=== PATIENT | male | born 1965 | race African-American/Black ===

== ENCOUNTER 2020-03-09 09:07 | Inpatient (IN) | payer OTHER ==
--- NOTE | 2020-03-09 12:15 | BHS.RME ---
Substance Use & Tx History - Substance Use History Alcohol Substance amount: 2 cases Frequency of use: Daily Substance route: Oral Date of Last Use: 03/08/20 - Last Treatment Date of last treatment: September 2019 at [facility] Where was last treatment: Detox Physical/Psych/Mental Status - Behavior General Behavior: Increased activity (restlessness, agitation) Eye Contact: Normal - Cooperativeness Cooperativeness: Cooperative - Thinking Thought Processes: Goal Directed Thought content: Future oriented - Physical Health Problems Is patient presently having any pain?: No Does patient presently have any injuries (include location): No Does patient currently have a fever: No CIWA Nausea/Vomitin Muscle Tremors: None Anxiety: 2 Agitation: 1-Slight > Activity Paroxysmal Sweats: 2 Orientation: 0-Oriented Tacttile Disturbances: 2-Mild Itch/Numbness/Burn Auditory Disturbances: 1-Very Mild Visual Disturbances: 1-Very Mild Sensitivity Headache: 1-Very Mild CIWA-Ar Total Score: 12
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
[2020-03-09] MEDS ORDERED: chlordiazePOXIDE HCL 10 MG CAPSULE PO PRN (12:21)
[2020-03-09] MEDS ORDERED: MENTHOL/PHENOL 1 EACH UD MM PRN (12:21)
[2020-03-09] MEDS ORDERED: IBUPROFEN 400 MG TABLET (FP) PO PRN (12:21)
[2020-03-09] MEDS ORDERED: ONDANSETRON *ODT* 4 MG TABLET SL ONE (12:21)
[2020-03-09] MEDS ORDERED: NICOTINE POLACRILEX 2 MG GUM BUC PRN (12:21)
[2020-03-09] MEDS ORDERED: METHOCARBAMOL 500 MG TABLET PO PRN (12:21)
[2020-03-09] MEDS ORDERED: MAGNESIUM HYDROX 2400MG/30ML ORAL SUSPENSION 30 ML CUP PO PRN (12:21)
[2020-03-09] MEDS ORDERED: BISMUTH SUBSALICYLATE 524 MG/30 ML UD PO PRN (12:21)
[2020-03-09] MEDS ORDERED: MAG HYDROX/AL HYDROX/SIMETH 30 ML UNIT-DOSE CUP PO PRN (12:21)
[2020-03-09] MEDS ORDERED: ACETAMINOPHEN 325 MG TABLET (FP) PO PRN ×2 (12:21)
[2020-03-09] MEDS ORDERED: MAGNESIUM CITRATE 300 ML BOTTLE PO PRN (12:21)
[2020-03-09 12:38] VITALS: BMI 21.5
[2020-03-09] MEDS: hydrOXYzine PAMOATE 25 MG CAPSULE (FP) PO SCH ×3 (13:45→21:27)
[2020-03-09] MEDS: chlordiazePOXIDE HCL 25 MG CAPSULE PO SCH ×2 (13:45→21:27)
[2020-03-09] MEDS: MELATONIN 5 MG TABLETS PO SCH (21:27)
[2020-03-09] MEDS: THIAMINE HCL 100 MG TABLET (FP) PO SCH (21:30)
[2020-03-10] MEDS: hydrOXYzine PAMOATE 25 MG CAPSULE (FP) PO SCH ×5 (05:41→22:10)
[2020-03-10] MEDS: chlordiazePOXIDE HCL 25 MG CAPSULE PO SCH ×3 (05:41→22:11)
[2020-03-10] MEDS: NICOTINE 7 MG/24 HOURS TOPICAL PATCH TD SCH (09:37)
[2020-03-10] MEDS: PRENATAL VITAMINS W/ FOLIC ACID TABLET (FP) PO SCH (09:37)
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
--- NOTE | 2020-03-10 10:57 | PN ---
S CIWA - CIWA Score Nausea/Vomitin-Mild Nausea/No Vomiting Muscle Tremors: 2 Anxiety: 2 Agitation: 1-Slight > Activity Paroxysmal Sweats: 2 Orientation: 0-Oriented Tacttile Disturbances: 1-Very Mild Itch/Numbness Auditory Disturbances: 0-None Visual Disturbances: 2-Mild Sensitivity Headache: 0-None Present CIWA-Ar Total Score: 11 BHS Progress Note (SOAP) Subjective: 54 years old male admitted on 03/09/20 for alcohol withdrawal sx management treating with librium detox regiment feeling tired resting in bed limited conversation with staff bmi 21.5 initiates ensure 120 ml po tid Objective: 03/10/20 10:58 Vital Signs - 24 hr 03/09/20 03/09/20 03/09/20 12:31 13:13 16:52 Temperature 97.9 F 97.1 F L 97.3 F L Pulse Rate 107 H 83 96 H Respiratory 18 18 16 Rate Blood Pressure 107/67 127/82 106/70 O2 Sat by Pulse 97 Oximetry (%) 03/09/20 03/10/20 03/10/20 20:35 00:30 03:30 Temperature 98.0 F Pulse Rate 100 H Respiratory 16 18 18 Rate Blood Pressure 110/69 O2 Sat by Pulse 99 Oximetry (%) 03/10/20 03/10/20 06:23 08:36 Temperature 97.7 F 97.1 F L Pulse Rate 73 96 H Respiratory 16 18 Rate Blood Pressure 99/59 L 102/61 O2 Sat by Pulse 98 Oximetry (%) 03/10/20 10:58 lab pending Assessment: 03/10/20 10:59 alcohol withdrawal Plan: ativan regiment
[2020-03-10 11:41] LABS: HEMATOCRIT 39.2 % (35.4-49); HEMOGLOBIN 12.9 GM/dL (11.7-16.9); MCH 30.5 pg (25.7-33.7); MEAN CELL VOLUME 92.4 fl (80-96); MEAN PLT VOLUME 11.7 fl (7.5-11.1); PLATELET COUNT 70 K/MM3 (134-434); RBC 4.24 M/mm3 (4.00-5.60); RDW 15.2 % (11.9-15.9); WHITE BLOOD COUNT 5.2 K/mm3 (4.0-10.0)
[2020-03-10 11:58] LABS: ALBUMIN 3.8 g/dl (3.4-5.0); BILIRUBIN,TOTAL 0.7 mg/dL (0.2-1); BLOOD UREA NITROGEN 20.1 mg/dL (7-18); CALCIUM 8.9 mg/dL (8.5-10.1); CREATININE 1.3 mg/dL (0.55-1.3); POTASSIUM 3.4 mmol/L (3.5-5.1); TOT PROT 6.9 g/dl (6.4-8.2)
[2020-03-10] MEDS ORDERED: POTASSIUM CHLORIDE ORAL LIQUID 20 MEQ/15 ML PO ONE (15:36)
[2020-03-10] MEDS ORDERED: SUVOREXANT 10 MG TABLET PO PRN (22:00)
[2020-03-10] MEDS: THIAMINE HCL 100 MG TABLET (FP) PO SCH (22:10)
[2020-03-10] MEDS: MELATONIN 5 MG TABLETS PO SCH (22:11)
[2020-03-10] MEDS: SUVOREXANT 10 MG TABLET PO PRN (22:14)
[2020-03-11] MEDS: chlordiazePOXIDE 5 MG CAPSULE PO SCH ×3 (06:40→22:00)
[2020-03-11] MEDS: hydrOXYzine PAMOATE 25 MG CAPSULE (FP) PO SCH ×5 (06:40→22:00)
[2020-03-11] MEDS: PRENATAL VITAMINS W/ FOLIC ACID TABLET (FP) PO SCH (10:15)
[2020-03-11] MEDS: NICOTINE 7 MG/24 HOURS TOPICAL PATCH TD SCH (10:16)
--- NOTE | 2020-03-11 10:31 | PN ---
S CIWA - CIWA Score Nausea/Vomitin-Mild Nausea/No Vomiting Muscle Tremors: 2 Anxiety: 3 Agitation: 2 Paroxysmal Sweats: No Perspiration Orientation: 0-Oriented Tacttile Disturbances: 0-None Auditory Disturbances: 0-None Visual Disturbances: 0-None Headache: 0-None Present CIWA-Ar Total Score: 8 BHS Progress Note (SOAP) Subjective: 54 years old male admitted on 03/09/20 for alcohol withdrawal sx management treating with librium detox regiment mr reno requests hiv medication that he takes hiv medication everyday and the prescription ran out last dose unknown name of infectious disease provider "not remember" name of the hiv medication unknown states that infectious disease provider assessing cd4 and virus load every 4 months designer/writer called [phone] unable to carry conversation with the pharmacist at this time encourage mr reno to contact his infectious disease provider sent hiv medication to [facility] for pick up and delivery driver as continuity of hiv care Objective: 03/11/20 10:35 Vital Signs - 24 hr 03/10/20 03/10/20 03/10/20 12:42 16:56 20:32 Temperature 96.7 F L 97.7 F 97.3 F L Pulse Rate 105 H 105 H 91 H Respiratory 18 16 16 Rate Blood Pressure 104/64 106/70 110/74 O2 Sat by Pulse 97 100 Oximetry (%) 03/11/20 03/11/20 03/11/20 00:29 03:28 05:52 Temperature 98.0 F Pulse Rate 82 Respiratory 18 18 18 Rate Blood Pressure 110/58 L O2 Sat by Pulse 98 Oximetry (%) 03/11/20 08:40 Temperature 97.9 F Pulse Rate 95 H Respiratory 18 Rate Blood Pressure 98/60 O2 Sat by Pulse Oximetry (%) Laboratory Tests 03/10/20 03/10/20 03/10/20 07:30 07:30 07:30 WBC 5.2 RBC 4.24 Hgb 12.9 Hct 39.2 MCV 92.4 MCH 30.5 MCHC 33.0 RDW 15.2 Plt Count 70 L MPV 11.7 H Sodium 144 Potassium 3.4 L Chloride 110 H Carbon Dioxide 24 Anion Gap 10 BUN 20.1 H Creatinine 1.3 Est GFR (CKD-EPI)AfAm 72.20 Est GFR (CKD-EPI)NonAf 62.29 Random Glucose 102 Calcium 8.9 Total Bilirubin 0.7 AST 30 ALT 33 Alkaline Phosphatase 63 Total Protein 6.9 Albumin 3.8 Syphilis Serology Reactive A* RPR Titer 03/10/20 07:30 WBC RBC Hgb Hct MCV MCH MCHC RDW Plt Count MPV Sodium Potassium Chloride Carbon Dioxide Anion Gap BUN Creatinine Est GFR (CKD-EPI)AfAm Est GFR (CKD-EPI)NonAf Random Glucose Calcium Total Bilirubin AST ALT Alkaline Phosphatase Total Protein Albumin Syphilis Serology RPR Titer Reactive 1:1 H low K+ treated with K+ 40mEq po x 1 history of syphilis treated 03/11/20 10:37 Assessment: 03/11/20 10:37 alcohol withdrawal Plan: librium regiment
[2020-03-11] MEDS: THIAMINE HCL 100 MG TABLET (FP) PO SCH (22:00)
[2020-03-11] MEDS: SUVOREXANT 10 MG TABLET PO PRN (22:01)
[2020-03-11] MEDS: MELATONIN 5 MG TABLETS PO SCH (22:24)
[2020-03-12] MEDS ORDERED: chlordiazePOXIDE HCL 10 MG CAPSULE PO PRN
[2020-03-12] MEDS: hydrOXYzine PAMOATE 25 MG CAPSULE (FP) PO SCH ×5 (05:30→21:26)
[2020-03-12] MEDS: chlordiazePOXIDE HCL 10 MG CAPSULE PO SCH ×3 (05:30→21:25)
--- NOTE | 2020-03-12 09:54 | PN ---
S CIWA - CIWA Score Nausea/Vomitin-Mild Nausea/No Vomiting Muscle Tremors: 1-None Visible, but [place] Anxiety: 1-Mildly Anxious Agitation: 1-Slight > Activity Paroxysmal Sweats: No Perspiration Orientation: 0-Oriented Tacttile Disturbances: 1-Very Mild Itch/Numbness Auditory Disturbances: 0-None Visual Disturbances: 1-Very Mild Sensitivity Headache: 0-None Present CIWA-Ar Total Score: 6 BHS Progress Note (SOAP) Subjective: 54 years old male admitted on 03/09/20 for alcohol withdrawal sx management treating with librium detox regiment feeling better today ate breakfast in room showered discussing aftercare with staff Objective: 03/12/20 09:55 Vital Signs - 24 hr 03/11/20 03/11/20 03/11/20 12:46 16:39 20:38 Temperature 97.5 F L 98 F 98.2 F Pulse Rate 93 H 101 H 96 H Respiratory 18 18 18 Rate Blood Pressure 105/69 102/67 115/65 O2 Sat by Pulse 100 100 Oximetry (%) 03/12/20 03/12/20 03/12/20 00:23 03:31 06:06 Temperature 97.5 F L Pulse Rate 78 Respiratory 18 18 18 Rate Blood Pressure 99/58 L O2 Sat by Pulse 99 Oximetry (%) 03/12/20 08:32 Temperature 98.1 F Pulse Rate 82 Respiratory 18 Rate Blood Pressure 128/78 O2 Sat by Pulse Oximetry (%) Laboratory Tests 03/10/20 03/10/20 03/10/20 07:30 07:30 07:30 WBC 5.2 RBC 4.24 Hgb 12.9 Hct 39.2 MCV 92.4 MCH 30.5 MCHC 33.0 RDW 15.2 Plt Count 70 L MPV 11.7 H Sodium 144 Potassium 3.4 L Chloride 110 H Carbon Dioxide 24 Anion Gap 10 BUN 20.1 H Creatinine 1.3 Est GFR (CKD-EPI)AfAm 72.20 Est GFR (CKD-EPI)NonAf 62.29 Random Glucose 102 Calcium 8.9 Total Bilirubin 0.7 AST 30 ALT 33 Alkaline Phosphatase 63 Total Protein 6.9 Albumin 3.8 Syphilis Serology Reactive A* RPR Titer 03/10/20 07:30 WBC RBC Hgb Hct MCV MCH MCHC RDW Plt Count MPV Sodium Potassium Chloride Carbon Dioxide Anion Gap BUN Creatinine Est GFR (CKD-EPI)AfAm Est GFR (CKD-EPI)NonAf Random Glucose Calcium Total Bilirubin AST ALT Alkaline Phosphatase Total Protein Albumin Syphilis Serology RPR Titer Reactive 1:1 H 03/12/20 09:56 low K+ treated with K+ 40mEq x 1 history of syphilis treated 03/12/20 09:57 Assessment: 03/12/20 09:58 alcohol withdrawal Plan: librium regiment
[2020-03-12] MEDS: PRENATAL VITAMINS W/ FOLIC ACID TABLET (FP) PO SCH (10:03)
[2020-03-12] MEDS: NICOTINE 7 MG/24 HOURS TOPICAL PATCH TD SCH (10:03)
--- NOTE | 2020-03-12 10:54 | PN ---
DOROTHY Progress Note Note: Psychiatry Attending's note : Patient came to office. Issue : wants belsomra at 9 pm. Instead of 10 pm as currently ordered. Chart reviewed. Dr Telles's note (03/09/20) : read. Medication confirmed. Side effects/benefits revisited. Renewed with patient's informed consent : belsomra 10 mg po hs prn @ 21:00.
[2020-03-12] MEDS ORDERED: SUVOREXANT 10 MG TABLET PO PRN (21:00)
[2020-03-12] MEDS: THIAMINE HCL 100 MG TABLET (FP) PO SCH (21:26)
[2020-03-12] MEDS: MELATONIN 5 MG TABLETS PO SCH ×2 (22:36→22:42)
[2020-03-13] MEDS ORDERED: chlordiazePOXIDE HCL 10 MG CAPSULE PO ONE (05:00)
[2020-03-13] MEDS: hydrOXYzine PAMOATE 25 MG CAPSULE (FP) PO SCH ×4 (05:30→18:20)
[2020-03-13] MEDS: PRENATAL VITAMINS W/ FOLIC ACID TABLET (FP) PO SCH (09:59)
[2020-03-13] MEDS ORDERED: LOPERAMIDE HCL 2 MG CAPSULE PO ONE (10:01)
[2020-03-13] MEDS: NICOTINE 7 MG/24 HOURS TOPICAL PATCH TD SCH (10:03)
--- NOTE | 2020-03-13 10:03 | DS ---
[facility] Detox Discharge Summary Admission Date: 03/09/20 Discharge Date: 03/13/20 - History Present History: Alcohol Dependence Additional Comments: 54 years old male admitted on 03/09/20 for alcohol withdrawal sx management treating with librium detox regiment ate breakfast no trouble chewing swallowing seen by psychiatrist luisa initiated for insomnia mr reno has completed the librium regiment and is tolerated well loose stool x 1 after breakfast imodium 4 mg po x 1 encourage hand washings and hygiene and oral fluid intake as well as over the counter antidiarrhea medication received K+ 40mEq x 1 for 3.4K+ serum mr reno is alert oriented x 3 speech clearly coherently Vital Signs - 24 hr 03/12/20 03/12/20 03/12/20 12:52 16:45 20:39 Temperature 97.6 F 97.7 F 98.4 F Pulse Rate 100 H 98 H 93 H Respiratory 20 18 18 Rate Blood Pressure 109/66 103/65 99/67 O2 Sat by Pulse 100 100 Oximetry (%) 03/13/20 03/13/20 03/13/20 03:30 06:14 08:35 Temperature 97.6 F 97.8 F Pulse Rate 86 72 Respiratory 18 18 18 Rate Blood Pressure 114/75 106/64 O2 Sat by Pulse 99 Oximetry (%) cardiac s1s2 regular rate rhythm respiratory clear lung sounds bilaterally on auscultation skin warm and dry oral mucosa moist Pertinent Past History: time for discharge 35 minutes - Physical Exam Results Vital Signs: Vital Signs Temperature 97.8 F 03/13/20 08:35 Pulse Rate 72 03/13/20 08:35 Respiratory Rate 18 03/13/20 08:35 Blood Pressure 106/64 03/13/20 08:35 O2 Sat by Pulse Oximetry (%) 99 03/13/20 06:14 Pertinent Admission Physical Exam Findings: alcohol withdrawal Laboratory Tests 03/10/20 03/10/20 03/10/20 07:30 07:30 07:30 WBC 5.2 RBC 4.24 Hgb 12.9 Hct 39.2 MCV 92.4 MCH 30.5 MCHC 33.0 RDW 15.2 Plt Count 70 L MPV 11.7 H Sodium 144 Potassium 3.4 L Chloride 110 H Carbon Dioxide 24 Anion Gap 10 BUN 20.1 H Creatinine 1.3 Est GFR (CKD-EPI)AfAm 72.20 Est GFR (CKD-EPI)NonAf 62.29 Random Glucose 102 Calcium 8.9 Total Bilirubin 0.7 AST 30 ALT 33 Alkaline Phosphatase 63 Total Protein 6.9 Albumin 3.8 Syphilis Serology Reactive A* RPR Titer 03/10/20 07:30 WBC RBC Hgb Hct MCV MCH MCHC RDW Plt Count MPV Sodium Potassium Chloride Carbon Dioxide Anion Gap BUN Creatinine Est GFR (CKD-EPI)AfAm Est GFR (CKD-EPI)NonAf Random Glucose Calcium Total Bilirubin AST ALT Alkaline Phosphatase Total Protein Albumin Syphilis Serology RPR Titer Reactive 1:1 H reactive syphilis serology treated by history rpr 1:1 - Treatment Hospital Course: Detox Protocol Followed, Detoxed Safely, Responded well, Discharged Condition Good, Rehab Referral Accepted Patient has Accepted a Rehab Referral [facility] - Medication Discharge Medications: Ambulatory Orders Abacavir/Dolutegravir/Lamivudi [Triumeq 600-50-300 mg Tablet] 1 each PO DAILY 12/20/14 Mirtazapine [Remeron -] 45 mg PO HS 03/09/20 - Diagnosis (1) Alcohol dependence, uncomplicated Current Visit: Yes Status: Acute (2) Substance induced mood disorder Current Visit: Yes Status: Suspected (3) Syphilis contact, treated Current Visit: Yes Status: Chronic (4) HIV (human immunodeficiency virus infection) Current Visit: Yes Status: Chronic Qualifiers: HIV symptom status: asymptomatic Qualified Code(s): Z21 - Asymptomatic human immunodeficiency virus [HIV] infection status (5) Nicotine dependence Current Visit: Yes Status: Acute Qualifiers: Nicotine product type: cigarettes Substance use status: in withdrawal Crescencio lified Code(s): F17.213 - Nicotine dependence, cigarettes, with withdrawal - AMA Did Patient Leave Against Medical Advice: No CIWA Score - CIWA Score Nausea/Vomitin-Mild Nausea/No Vomiting Muscle Tremors: 1-None Visible, but [place] Anxiety: 1-Mildly Anxious Agitation: 0-Normal Activity Paroxysmal Sweats: No Perspiration Orientation: 0-Oriented Tacttile Disturbances: 0-None Auditory Disturbances: 0-None Visual Disturbances: 0-None Headache: 0-None Present CIWA-Ar Total Score: 3
--- NOTE | 2020-03-13 11:32 | PN ---
DOROTHY Progress Note Note: Psychiatry Attending's note : Follow-up visit to discuss medications. Patient came spontaneously to office. Met with MD. Endorses partial response to suvorexant. Mr Wei requests addition of quetiapine to regimen. Side effects/benefits are discussed with the patient. Informed consent (verbal) granted to MD. See orders. Seroquel 100 mg po hs @ 9 pm (at patient's specific request).
[2020-03-13 17:40] VITALS: BP 98/66; PULSE 95; TEMP 96.8
[2020-03-13] MEDS ORDERED: QUEtiapine FUMARATE 100 MG TABLET (FP) PO SCH (21:00)
== END 2020-03-13 18:08 | disposition other institution (70) | DRG 774 ==
LOC: YASAS 09:07 → Y3N 12:18
PROVIDERS: ADMIT Allergy & Immunology; ATTEND Allergy & Immunology
PROC: HZ2ZZZZ Detoxification Services for Substance Abuse Treatment (ICD-10-PCS; principal; 2020-03-09)
DX: F10.230 Alcohol dependence with withdrawal, uncomplicated (principal); F14.20 Cocaine dependence, uncomplicated; F17.210 Nicotine dependence, cigarettes, uncomplicated; F19.282 Other psychoactive substance dependence with psychoactive substance-induced sleep disorder; F19.24 Other psychoactive substance dependence with psychoactive substance-induced mood disorder; Z21 Asymptomatic human immunodeficiency virus [HIV] infection status; E73.9 Lactose intolerance, unspecified; M17.0 Bilateral primary osteoarthritis of knee; Z20.2 Contact with and (suspected) exposure to infections with a predominantly sexual mode of transmission; Z91.5 Personal history of self-harm; Z88.0 Allergy status to penicillin
CPT/HCPCS: 36415; 80053; 85027; 86593; 86780; U0003

== ENCOUNTER 2020-03-13 17:52 | Inpatient (IN) | payer OTHER ==
--- NOTE | 2020-03-13 10:54 | HP ---
DOROTHY OZUNA Rehab Assess/Revision - Admission History Admitted to Rehab from: [facility] Date of Admission to Rehab: 03/13/20 - Findings Detox History & Physical reviewed: Yes Concur with findings: Yes Comments/Additional Findings: transferred from detox to rehab admission as per protocol Inpatient Rehab Admission - Rehab Decision to Admit Inpatient rehab admission?: Yes - Initial Determination Are CD services needed?: Yes Free of communicable disease: Yes Not in need of hospitalization: Yes - Rehab Admission Criteria Previous failed treatment: Yes Poor recovery environment: Yes Comorbidities: Yes Lacks judgement: Yes Patient is meeting Inpatient Rehab admission criteria:: Yes
[~2020-03-13 17:52] MED LIST: ACETAMINOPHEN 325 MG TABLET (FP) PO PRN; IBUPROFEN 400 MG TABLET (FP) PO PRN; LOPERAMIDE HCL 2 MG CAPSULE PO PRN; MAG HYDROX/AL HYDROX/SIMETH 30 ML UNIT-DOSE CUP PO PRN; MAGNESIUM CITRATE 300 ML BOTTLE PO PRN; MAGNESIUM HYDROX 2400MG/30ML ORAL SUSPENSION 30 ML CUP PO PRN; P-EPHED 60MG/TRIPROLIDI 2.5MG TABLET PO PRN; guaiFENesin 200 MG/10 ML 10 ML UNIT-DOSE CUPS PO PRN; hydrOXYzine PAMOATE 25 MG CAPSULE (FP) PO PRN
[2020-03-13] MEDS: THIAMINE HCL 100 MG TABLET (FP) PO SCH (21:21)
[2020-03-13] MEDS: MELATONIN 5 MG TABLETS PO SCH (21:22)
[2020-03-13] MEDS ORDERED: SUVOREXANT 10 MG TABLET PO ONE (22:00)
[2020-03-14] MEDS: NICOTINE 7 MG/24 HOURS TOPICAL PATCH TD SCH (09:43)
[2020-03-14] MEDS: PRENATAL VITAMINS W/ FOLIC ACID TABLET (FP) PO SCH (09:43)
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
--- NOTE | 2020-03-14 14:08 | PN ---
[facility] Progress Note Note: Patient is HIV positive and is on Triumeq. Last dose on 03/09, right before admission to [facility].
[2020-03-14] MEDS: THIAMINE HCL 100 MG TABLET (FP) PO SCH (21:06)
[2020-03-14] MEDS: MELATONIN 5 MG TABLETS PO SCH (21:07)
[2020-03-14] MEDS: QUEtiapine FUMARATE 100 MG TABLET (FP) PO SCH (21:07)
[2020-03-14] MEDS: SUVOREXANT 10 MG TABLET PO PRN (21:09)
[2020-03-15] MEDS: ABACAVIR/DOLUTEGRAVIR/LAMIVUDI (TRIUMEQ) TABLET -NF PO SCH (07:06)
[2020-03-15] MEDS: PRENATAL VITAMINS W/ FOLIC ACID TABLET (FP) PO SCH (09:31)
[2020-03-15] MEDS: NICOTINE 7 MG/24 HOURS TOPICAL PATCH TD SCH (09:32)
[2020-03-15] MEDS: QUEtiapine FUMARATE 100 MG TABLET (FP) PO SCH (19:25)
[2020-03-15] MEDS: MELATONIN 5 MG TABLETS PO SCH (21:33)
[2020-03-15] MEDS: THIAMINE HCL 100 MG TABLET (FP) PO SCH (21:33)
[2020-03-15] MEDS: SUVOREXANT 10 MG TABLET PO PRN (21:34)
[2020-03-16] MEDS: ABACAVIR/DOLUTEGRAVIR/LAMIVUDI (TRIUMEQ) TABLET -NF PO SCH (07:27)
[2020-03-16] MEDS: PRENATAL VITAMINS W/ FOLIC ACID TABLET (FP) PO SCH (10:02)
[2020-03-16] MEDS: NICOTINE 7 MG/24 HOURS TOPICAL PATCH TD SCH (10:02)
[2020-03-16] MEDS: QUEtiapine FUMARATE 100 MG TABLET (FP) PO SCH (19:46)
[2020-03-16] MEDS: THIAMINE HCL 100 MG TABLET (FP) PO SCH (21:25)
[2020-03-16] MEDS: MELATONIN 5 MG TABLETS PO SCH (21:25)
[2020-03-16] MEDS: SUVOREXANT 10 MG TABLET PO PRN (21:26)
[2020-03-17] MEDS: ABACAVIR/DOLUTEGRAVIR/LAMIVUDI (TRIUMEQ) TABLET -NF PO SCH (07:01)
[2020-03-17] MEDS: PRENATAL VITAMINS W/ FOLIC ACID TABLET (FP) PO SCH (10:00)
[2020-03-17] MEDS: NICOTINE 7 MG/24 HOURS TOPICAL PATCH TD SCH (10:00)
[2020-03-17] MEDS: QUEtiapine FUMARATE 100 MG TABLET (FP) PO SCH (19:44)
[2020-03-17] MEDS: SUVOREXANT 10 MG TABLET PO PRN (21:08)
[2020-03-17] MEDS: MELATONIN 5 MG TABLETS PO SCH (21:08)
[2020-03-17] MEDS: THIAMINE HCL 100 MG TABLET (FP) PO SCH (21:08)
[2020-03-18] MEDS ORDERED: PT OWN MED DRAWER 7, Y5N ONE ×2 (05:18→07:32)
[2020-03-18] MEDS: ABACAVIR/DOLUTEGRAVIR/LAMIVUDI (TRIUMEQ) TABLET -NF PO SCH (07:15)
[2020-03-18] MEDS: PRENATAL VITAMINS W/ FOLIC ACID TABLET (FP) PO SCH (09:55)
[2020-03-18] MEDS: NICOTINE POLACRILEX 2 MG GUM BC PRN (09:56)
[2020-03-18] MEDS: NICOTINE 7 MG/24 HOURS TOPICAL PATCH TD SCH (09:57)
[2020-03-18] MEDS: QUEtiapine FUMARATE 100 MG TABLET (FP) PO SCH (21:00)
[2020-03-18] MEDS: THIAMINE HCL 100 MG TABLET (FP) PO SCH (21:00)
[2020-03-18] MEDS: MELATONIN 5 MG TABLETS PO SCH (21:00)
[2020-03-19] MEDS ORDERED: PT OWN MED DRAWER 7, Y5N ONE (03:16)
[2020-03-19] MEDS: ABACAVIR/DOLUTEGRAVIR/LAMIVUDI (TRIUMEQ) TABLET -NF PO SCH (07:27)
[2020-03-19] MEDS: NICOTINE 7 MG/24 HOURS TOPICAL PATCH TD SCH (10:00)
[2020-03-19] MEDS: PRENATAL VITAMINS W/ FOLIC ACID TABLET (FP) PO SCH (10:00)
[2020-03-19] MEDS: NICOTINE POLACRILEX 2 MG GUM BC PRN (10:01)
[2020-03-19] MEDS: QUEtiapine FUMARATE 100 MG TABLET (FP) PO SCH (19:57)
[2020-03-19] MEDS: MELATONIN 5 MG TABLETS PO SCH (21:13)
[2020-03-19] MEDS: THIAMINE HCL 100 MG TABLET (FP) PO SCH (21:14)
[2020-03-20] MEDS ORDERED: PT OWN MED DRAWER 7, Y5N ONE (03:13)
[2020-03-20] MEDS: ABACAVIR/DOLUTEGRAVIR/LAMIVUDI (TRIUMEQ) TABLET -NF PO SCH (07:16)
[2020-03-20] MEDS: PRENATAL VITAMINS W/ FOLIC ACID TABLET (FP) PO SCH (09:26)
[2020-03-20] MEDS: NICOTINE 7 MG/24 HOURS TOPICAL PATCH TD SCH (09:27)
[2020-03-20] MEDS: QUEtiapine FUMARATE 100 MG TABLET (FP) PO SCH (19:48)
[2020-03-20] MEDS: MELATONIN 5 MG TABLETS PO SCH (21:13)
[2020-03-20] MEDS: THIAMINE HCL 100 MG TABLET (FP) PO SCH (21:13)
[2020-03-21] MEDS ORDERED: PT OWN MED DRAWER 7, Y5N ONE (03:05)
[2020-03-21] MEDS: ABACAVIR/DOLUTEGRAVIR/LAMIVUDI (TRIUMEQ) TABLET -NF PO SCH (07:31)
[2020-03-21] MEDS: PRENATAL VITAMINS W/ FOLIC ACID TABLET (FP) PO SCH (09:37)
[2020-03-21] MEDS: NICOTINE 7 MG/24 HOURS TOPICAL PATCH TD SCH (09:37)
[2020-03-21] MEDS: NICOTINE POLACRILEX 2 MG GUM BC PRN (09:38)
--- NOTE | 2020-03-21 10:26 | PN ---
[facility] Progress Note Note: Psychiatric nurse practitioner note: Patient requesting to resume Belsomra 10mg HS PRN. Will re order Belsomra 10mg PRN X3 days for insomnia.
--- NOTE | 2020-03-21 10:31 | PN ---
[facility] Progress Note Note: patient is reporting diarrhea after every meal. He is lactose intolerant and drinking Ensure with his meals. He states he has to "because he is HIV positive." Explained to patient that he will continue to have diarrhea as long as he drinks Ensure. Offered [employer].
[2020-03-21] MEDS: AMINO ACIDS/PROTEIN HYDROLYS 30 ML LIQUID.PKT PO SCH (16:59)
[2020-03-21] MEDS: SUVOREXANT 10 MG TABLET PO PRN (21:19)
[2020-03-21] MEDS: THIAMINE HCL 100 MG TABLET (FP) PO SCH (21:19)
[2020-03-21] MEDS: QUEtiapine FUMARATE 100 MG TABLET (FP) PO SCH (21:19)
[2020-03-21] MEDS: MELATONIN 5 MG TABLETS PO SCH (21:19)
[2020-03-22] MEDS ORDERED: PT OWN MED DRAWER 7, Y5N ONE ×2 (05:25→07:06)
[2020-03-22] MEDS: ABACAVIR/DOLUTEGRAVIR/LAMIVUDI (TRIUMEQ) TABLET -NF PO SCH (07:04)
[2020-03-22] MEDS: AMINO ACIDS/PROTEIN HYDROLYS 30 ML LIQUID.PKT PO SCH ×2 (07:05→17:40)
[2020-03-22] MEDS: NICOTINE 7 MG/24 HOURS TOPICAL PATCH TD SCH (09:53)
[2020-03-22] MEDS: PRENATAL VITAMINS W/ FOLIC ACID TABLET (FP) PO SCH (09:53)
[2020-03-22] MEDS: QUEtiapine FUMARATE 100 MG TABLET (FP) PO SCH (20:42)
[2020-03-22] MEDS: MELATONIN 5 MG TABLETS PO SCH (21:11)
[2020-03-22] MEDS: THIAMINE HCL 100 MG TABLET (FP) PO SCH (21:11)
[2020-03-22] MEDS: SUVOREXANT 10 MG TABLET PO PRN (21:11)
[2020-03-23] MEDS: ABACAVIR/DOLUTEGRAVIR/LAMIVUDI (TRIUMEQ) TABLET -NF PO SCH (07:18)
[2020-03-23] MEDS: AMINO ACIDS/PROTEIN HYDROLYS 30 ML LIQUID.PKT PO SCH ×2 (07:18→17:21)
[2020-03-23] MEDS ORDERED: PT OWN MED DRAWER 7, Y5N ONE ×2 (07:19→08:22)
[2020-03-23] MEDS: PRENATAL VITAMINS W/ FOLIC ACID TABLET (FP) PO SCH (09:40)
[2020-03-23] MEDS: NICOTINE POLACRILEX 2 MG GUM BC PRN (09:41)
[2020-03-23] MEDS: NICOTINE 7 MG/24 HOURS TOPICAL PATCH TD SCH (09:41)
[2020-03-23] MEDS: THIAMINE HCL 100 MG TABLET (FP) PO SCH (21:25)
[2020-03-23] MEDS: QUEtiapine FUMARATE 100 MG TABLET (FP) PO SCH (21:25)
[2020-03-23] MEDS: MELATONIN 5 MG TABLETS PO SCH (21:26)
[2020-03-23] MEDS: SUVOREXANT 10 MG TABLET PO PRN (21:26)
[2020-03-24] MEDS: ABACAVIR/DOLUTEGRAVIR/LAMIVUDI (TRIUMEQ) TABLET -NF PO SCH (07:15)
[2020-03-24] MEDS: AMINO ACIDS/PROTEIN HYDROLYS 30 ML LIQUID.PKT PO SCH ×2 (07:16→17:06)
[2020-03-24] MEDS ORDERED: PT OWN MED DRAWER 7, Y5N ONE (08:53)
[2020-03-24] MEDS: PRENATAL VITAMINS W/ FOLIC ACID TABLET (FP) PO SCH (09:51)
[2020-03-24] MEDS: NICOTINE 7 MG/24 HOURS TOPICAL PATCH TD SCH (09:52)
[2020-03-24] MEDS: NICOTINE POLACRILEX 2 MG GUM BC PRN (09:52)
[2020-03-24] MEDS: QUEtiapine FUMARATE 100 MG TABLET (FP) PO SCH (19:49)
[2020-03-24] MEDS: SUVOREXANT 10 MG TABLET PO PRN (21:20)
[2020-03-24] MEDS: THIAMINE HCL 100 MG TABLET (FP) PO SCH (21:20)
[2020-03-24] MEDS: MELATONIN 5 MG TABLETS PO SCH (21:20)
[2020-03-24] MEDS ORDERED: SUVOREXANT 10 MG TABLET PO PRN (22:00)
[2020-03-25] MEDS: AMINO ACIDS/PROTEIN HYDROLYS 30 ML LIQUID.PKT PO SCH ×2 (07:04→17:46)
[2020-03-25] MEDS: ABACAVIR/DOLUTEGRAVIR/LAMIVUDI (TRIUMEQ) TABLET -NF PO SCH (07:05)
[2020-03-25] MEDS ORDERED: PT OWN MED DRAWER 7, Y5N ONE ×4 (07:06→17:09)
[2020-03-25] MEDS: NICOTINE POLACRILEX 2 MG GUM BC PRN (10:12)
[2020-03-25] MEDS: NICOTINE 7 MG/24 HOURS TOPICAL PATCH TD SCH (10:12)
[2020-03-25] MEDS: PRENATAL VITAMINS W/ FOLIC ACID TABLET (FP) PO SCH (10:12)
[2020-03-25] MEDS: QUEtiapine FUMARATE 100 MG TABLET (FP) PO SCH (19:58)
[2020-03-25] MEDS: MELATONIN 5 MG TABLETS PO SCH (21:33)
[2020-03-25] MEDS: THIAMINE HCL 100 MG TABLET (FP) PO SCH (21:33)
[2020-03-26] MEDS ORDERED: PT OWN MED DRAWER 7, Y5N ONE ×4 (05:48→17:14)
[2020-03-26] MEDS: AMINO ACIDS/PROTEIN HYDROLYS 30 ML LIQUID.PKT PO SCH ×2 (07:22→17:32)
[2020-03-26] MEDS: ABACAVIR/DOLUTEGRAVIR/LAMIVUDI (TRIUMEQ) TABLET -NF PO SCH (07:22)
[2020-03-26] MEDS: NICOTINE 7 MG/24 HOURS TOPICAL PATCH TD SCH (09:47)
[2020-03-26] MEDS: PRENATAL VITAMINS W/ FOLIC ACID TABLET (FP) PO SCH (09:47)
[2020-03-26] MEDS: NICOTINE POLACRILEX 2 MG GUM BC PRN (09:48)
[2020-03-26] MEDS: QUEtiapine FUMARATE 100 MG TABLET (FP) PO SCH (19:54)
[2020-03-26] MEDS: MELATONIN 5 MG TABLETS PO SCH (21:24)
[2020-03-26] MEDS: THIAMINE HCL 100 MG TABLET (FP) PO SCH (21:24)
[2020-03-27 06:42] VITALS: BP 122/68; PULSE 80; TEMP 98.3
[2020-03-27] MEDS: AMINO ACIDS/PROTEIN HYDROLYS 30 ML LIQUID.PKT PO SCH (07:13)
[2020-03-27] MEDS: ABACAVIR/DOLUTEGRAVIR/LAMIVUDI (TRIUMEQ) TABLET -NF PO SCH (07:13)
--- NOTE | 2020-03-27 08:24 | DS ---
[facility] Rehab Discharge Summary - [facility] Rehab Discharge Summary Admission Date: 03/13/20 Discharge Date: 03/27/20 - History Present History: Alcohol dependence, Cocaine dependence Pertinent Past History: 54 year old man with alcohol use, he reports last detox was in September at [facility]. He denies seizures or blackouts. Patient has HIV, he reports he has not taken HIV medication in 3 months - Discharge Physical Exam Vital Signs: Vital Signs Temperature 98.3 F 03/27/20 06:41 Pulse Rate 80 03/27/20 06:41 Respiratory Rate 18 03/27/20 06:41 Blood Pressure 122/68 03/27/20 06:41 O2 Sat by Pulse Oximetry (%) 99 03/27/20 06:41 Pertinent Admission Physical Exam Findings: Physical General Appearance: No Apparent Distress HEENTM: Normocephalic, Respiratory: No Respiratory Distress, No Accessory Muscle Use Neck: Supple Cardiology: S1, S2 Abdominal: +Bowel Sounds Musculoskeletal: Gait Steady, Muscle Pain - Treatment Discharge Condition: Outpatient referral accepted (Medically stable for discharge.Patient will go to [facility] for aftercare.) - Medication Discharge Medications: Ambulatory Orders Abacavir/Dolutegravir/Lamivudi [Triumeq 600-50-300 mg Tablet] 1 each PO DAILY 12/20/14 Mirtazapine [Remeron -] 45 mg PO HS 03/09/20 - Medication-Assisted Treatment (MAT) Medication-Assisted Treatment (MAT): No - Discharge Instructions Diet, activity, other medical instructions: Diet: As appropriate Activity: As appropriate Other medical instructions: Please follow up with aftercare referral - Diagnosis (1) Alcohol dependence Current Visit: Yes Status: Chronic (2) Cocaine dependence Current Visit: Yes Status: Chronic Qualifiers: Substance use status: uncomplicated Qualified Code(s): F14.20 - Cocaine dependence, uncomplicated - Follow-up Referral Minutes to complete discharge: 15 - AMA Did Patient Leave Against Medical Advice: No
[2020-03-27] MEDS: NICOTINE 7 MG/24 HOURS TOPICAL PATCH TD SCH (09:28)
[2020-03-27] MEDS: PRENATAL VITAMINS W/ FOLIC ACID TABLET (FP) PO SCH (09:28)
== END 2020-03-27 09:20 | disposition home or self-care (01) | DRG 772 ==
LOC: YASAS 17:52 → Y3E 17:53
PROVIDERS: ADMIT Allergy & Immunology; ATTEND Allergy & Immunology
PROC: HZ42ZZZ Group Counseling for Substance Abuse Treatment, Cognitive-Behavioral (ICD-10-PCS; principal; 2020-03-13)
DX: F10.20 Alcohol dependence, uncomplicated (principal); F14.20 Cocaine dependence, uncomplicated; F17.210 Nicotine dependence, cigarettes, uncomplicated; F19.282 Other psychoactive substance dependence with psychoactive substance-induced sleep disorder; F19.24 Other psychoactive substance dependence with psychoactive substance-induced mood disorder; F39 Unspecified mood [affective] disorder; Z21 Asymptomatic human immunodeficiency virus [HIV] infection status; E73.9 Lactose intolerance, unspecified; Z87.828 Personal history of other (healed) physical injury and trauma; Z91.14 Patient's other noncompliance with medication regimen; Z88.0 Allergy status to penicillin; Z56.0 Unemployment, unspecified; Z59.0 Homelessness
CPT/HCPCS: 36415; 84132

== ENCOUNTER 2020-07-22 13:48 | Inpatient (IN) | payer OTHER ==
[2020-07-22 18:11] VITALS: BMI 22.9
[2020-07-22] MEDS ORDERED: guaiFENesin 200 MG/10 ML 10 ML UNIT-DOSE CUPS PO PRN (19:06)
[2020-07-22] MEDS ORDERED: P-EPHED 60MG/TRIPROLIDI 2.5MG TABLET PO PRN (19:06)
[2020-07-22] MEDS ORDERED: IBUPROFEN 400 MG TABLET (FP) PO PRN (19:06)
[2020-07-22] MEDS ORDERED: MAG HYDROX/AL HYDROX/SIMETH 30 ML UNIT-DOSE CUP PO PRN (19:06)
[2020-07-22] MEDS ORDERED: MAGNESIUM HYDROX 2400MG/30ML ORAL SUSPENSION 30 ML CUP PO PRN (19:06)
[2020-07-22] MEDS ORDERED: MAGNESIUM CITRATE 300 ML BOTTLE PO PRN (19:06)
[2020-07-22] MEDS ORDERED: LOPERAMIDE HCL 2 MG CAPSULE PO PRN (19:06)
[2020-07-22] MEDS: ACETAMINOPHEN 325 MG TABLET (FP) PO PRN (21:07)
[2020-07-22] MEDS: MELATONIN 5 MG TABLETS PO SCH (21:07)
[2020-07-22] MEDS: METHOCARBAMOL 500 MG TABLET PO PRN (21:07)
[2020-07-22] MEDS: THIAMINE HCL 100 MG TABLET (FP) PO SCH (21:08)
[2020-07-22] MEDS: NICOTINE POLACRILEX 2 MG GUM BC PRN (21:08)
[2020-07-23] MEDS: PRENATAL VITAMINS W/ FOLIC ACID TABLET (FP) PO SCH (09:27)
[2020-07-23] MEDS: ACETAMINOPHEN 325 MG TABLET (FP) PO PRN (09:28)
[2020-07-23 12:37] LABS: POTASSIUM 3.9 mmol/L (3.5-5.1)
[2020-07-23 12:38] LABS: HEMATOCRIT 36.9 % (35.4-49); HEMOGLOBIN 12.1 GM/dL (11.7-16.9); MCH 30.6 pg (25.7-33.7); MCHC 32.8 g/dl (32.0-35.9); MEAN CELL VOLUME 93.5 fl (80-96); MEAN PLT VOLUME 11.1 fl (7.5-11.1); RBC 3.95 M/mm3 (4.00-5.60); RDW 14.7 % (11.9-15.9); WHITE BLOOD COUNT 3.2 K/mm3 (4.0-10.0)
[2020-07-23 12:52] LABS: CALCIUM 8.5 mg/dL (8.5-10.1)
[2020-07-23 12:53] LABS: ALBUMIN 3.2 g/dl (3.4-5.0); BLOOD UREA NITROGEN 12.4 mg/dL (7-18)
[2020-07-23 12:58] LABS: BILIRUBIN,TOTAL 0.8 mg/dL (0.2-1); TOT PROT 5.5 g/dl (6.4-8.2)
[2020-07-23 13:52] LABS: PLATELET COUNT 32 K/MM3 (134-434)
[2020-07-23 15:13] LABS: HIV INTERPRETATION PRESUMPTIVE POSITIVE (NEGATIVE)
[2020-07-23] MEDS ORDERED: MIRTAZAPINE 15 MG TABLET (FP) ONE (20:54)
[2020-07-23] MEDS: THIAMINE HCL 100 MG TABLET (FP) PO SCH (21:25)
[2020-07-23] MEDS: MIRTAZAPINE 30 MG TABLET PO SCH (21:26)
[2020-07-23] MEDS: NICOTINE POLACRILEX 2 MG GUM BC PRN (21:26)
[2020-07-23] MEDS: MELATONIN 5 MG TABLETS PO SCH (21:26)
[2020-07-24] MEDS: PRENATAL VITAMINS W/ FOLIC ACID TABLET (FP) PO SCH (09:33)
[2020-07-24] MEDS: ACETAMINOPHEN 325 MG TABLET (FP) PO PRN (09:35)
[2020-07-24] MEDS: DARUNAVIR/COB/EMTRI/TENOF (SYMTUZA) TABLET (NF) PO SCH (14:54)
[2020-07-24] MEDS: NICOTINE POLACRILEX 2 MG GUM BC PRN (14:55)
[2020-07-24] MEDS ORDERED: MIRTAZAPINE 15 MG TABLET (FP) ONE (19:22)
[2020-07-24] MEDS: METHOCARBAMOL 500 MG TABLET PO PRN (21:02)
[2020-07-24] MEDS: MELATONIN 5 MG TABLETS PO SCH (21:02)
[2020-07-24] MEDS: MIRTAZAPINE 30 MG TABLET PO SCH (21:02)
[2020-07-24] MEDS: THIAMINE HCL 100 MG TABLET (FP) PO SCH (21:02)
[2020-07-25] MEDS: DARUNAVIR/COB/EMTRI/TENOF (SYMTUZA) TABLET (NF) PO SCH (09:42)
[2020-07-25] MEDS: PRENATAL VITAMINS W/ FOLIC ACID TABLET (FP) PO SCH (09:42)
[2020-07-25 13:25] LABS: URINE APPEARANCE CLEAR; URINE BILIRUBIN NEGATIVE (NEGATIVE); URINE COLOR YELLOW; URINE GLUCOSE (UA) NEGATIVE (NEGATIVE); URINE KETONE NEGATIVE (NEGATIVE); URINE LEUK ESTERASE NEGATIVE (NEGATIVE); URINE NITRITE NEGATIVE (NEGATIVE); URINE PROTEIN NEGATIVE (NEGATIVE); URINE UROBILINOGEN 0.2 mg/dL (0.2-1.0)
[2020-07-25] MEDS: ACETAMINOPHEN 325 MG TABLET (FP) PO PRN (21:35)
[2020-07-25] MEDS: MELATONIN 5 MG TABLETS PO SCH (21:35)
[2020-07-25] MEDS: MIRTAZAPINE 30 MG TABLET PO SCH (21:35)
[2020-07-25] MEDS: METHOCARBAMOL 500 MG TABLET PO PRN (21:35)
[2020-07-25] MEDS: THIAMINE HCL 100 MG TABLET (FP) PO SCH (21:35)
[2020-07-26] MEDS: DARUNAVIR/COB/EMTRI/TENOF (SYMTUZA) TABLET (NF) PO SCH (07:14)
[2020-07-26] MEDS: PRENATAL VITAMINS W/ FOLIC ACID TABLET (FP) PO SCH ×2 (09:46→09:47)
[2020-07-26] MEDS: NICOTINE POLACRILEX 2 MG GUM BC PRN ×2 (09:47→21:06)
[2020-07-26] MEDS: ACETAMINOPHEN 325 MG TABLET (FP) PO PRN (12:29)
[2020-07-26] MEDS: METHOCARBAMOL 500 MG TABLET PO PRN (21:04)
[2020-07-26] MEDS: THIAMINE HCL 100 MG TABLET (FP) PO SCH (21:04)
[2020-07-26] MEDS: MIRTAZAPINE 30 MG TABLET PO SCH (21:05)
[2020-07-26] MEDS: MELATONIN 5 MG TABLETS PO SCH (21:05)
[2020-07-27] MEDS: DARUNAVIR/COB/EMTRI/TENOF (SYMTUZA) TABLET (NF) PO SCH (07:02)
[2020-07-27] MEDS: PRENATAL VITAMINS W/ FOLIC ACID TABLET (FP) PO SCH (09:42)
[2020-07-27] MEDS: ACETAMINOPHEN 325 MG TABLET (FP) PO PRN (09:42)
[2020-07-27] MEDS: NICOTINE POLACRILEX 2 MG GUM BC PRN ×2 (09:44→21:38)
[2020-07-27] MEDS: THIAMINE HCL 100 MG TABLET (FP) PO SCH (21:38)
[2020-07-27] MEDS: METHOCARBAMOL 500 MG TABLET PO PRN (21:38)
[2020-07-27] MEDS: MIRTAZAPINE 30 MG TABLET PO SCH (21:38)
[2020-07-27] MEDS: MELATONIN 5 MG TABLETS PO SCH (21:38)
[2020-07-28] MEDS: DARUNAVIR/COB/EMTRI/TENOF (SYMTUZA) TABLET (NF) PO SCH (07:01)
[2020-07-28] MEDS: PRENATAL VITAMINS W/ FOLIC ACID TABLET (FP) PO SCH (09:32)
[2020-07-28] MEDS: ACETAMINOPHEN 325 MG TABLET (FP) PO PRN ×2 (09:33→21:08)
[2020-07-28] MEDS: THIAMINE HCL 100 MG TABLET (FP) PO SCH (21:07)
[2020-07-28] MEDS: METHOCARBAMOL 500 MG TABLET PO PRN (21:07)
[2020-07-28] MEDS: MELATONIN 5 MG TABLETS PO SCH (21:07)
[2020-07-28] MEDS: MIRTAZAPINE 30 MG TABLET PO SCH (21:07)
[2020-07-28] MEDS: NICOTINE POLACRILEX 2 MG GUM BC PRN (21:10)
[2020-07-29] MEDS: DARUNAVIR/COB/EMTRI/TENOF (SYMTUZA) TABLET (NF) PO SCH (07:51)
[2020-07-29] MEDS: PRENATAL VITAMINS W/ FOLIC ACID TABLET (FP) PO SCH (09:40)
[2020-07-29] MEDS: MELATONIN 5 MG TABLETS PO SCH (21:16)
[2020-07-29] MEDS: METHOCARBAMOL 500 MG TABLET PO PRN (21:17)
[2020-07-29] MEDS: NICOTINE POLACRILEX 2 MG GUM BC PRN (21:17)
[2020-07-29] MEDS: MIRTAZAPINE 30 MG TABLET PO SCH (21:17)
[2020-07-29] MEDS: THIAMINE HCL 100 MG TABLET (FP) PO SCH (21:17)
[2020-07-29] MEDS: ACETAMINOPHEN 325 MG TABLET (FP) PO PRN (21:17)
[2020-07-30] MEDS: DARUNAVIR/COB/EMTRI/TENOF (SYMTUZA) TABLET (NF) PO SCH (07:31)
[2020-07-30] MEDS: PRENATAL VITAMINS W/ FOLIC ACID TABLET (FP) PO SCH (09:54)
[2020-07-30] MEDS: NICOTINE POLACRILEX 2 MG GUM BC PRN (09:55)
[2020-07-30] MEDS: MIRTAZAPINE 30 MG TABLET PO SCH (21:40)
[2020-07-30] MEDS: MELATONIN 5 MG TABLETS PO SCH (21:40)
[2020-07-30] MEDS: THIAMINE HCL 100 MG TABLET (FP) PO SCH (21:40)
[2020-07-30] MEDS: ACETAMINOPHEN 325 MG TABLET (FP) PO PRN (21:42)
[2020-07-31 06:55] VITALS: BP 116/79; PULSE 88; TEMP 98.2
[2020-07-31] MEDS: DARUNAVIR/COB/EMTRI/TENOF (SYMTUZA) TABLET (NF) PO SCH (07:02)
[2020-07-31] MEDS: PRENATAL VITAMINS W/ FOLIC ACID TABLET (FP) PO SCH (09:51)
== END 2020-07-31 09:15 | disposition other institution (70) | DRG 772 ==
LOC: YASAS 13:48 → Y5N 18:37
PROVIDERS: ADMIT Allergy & Immunology; ATTEND Allergy & Immunology
PROC: HZ42ZZZ Group Counseling for Substance Abuse Treatment, Cognitive-Behavioral (ICD-10-PCS; principal; 2020-07-22)
DX: F14.20 Cocaine dependence, uncomplicated (principal); F10.10 Alcohol abuse, uncomplicated; F17.210 Nicotine dependence, cigarettes, uncomplicated; F19.282 Other psychoactive substance dependence with psychoactive substance-induced sleep disorder; F19.24 Other psychoactive substance dependence with psychoactive substance-induced mood disorder; F32.9 Major depressive disorder, single episode, unspecified; F41.9 Anxiety disorder, unspecified; Z21 Asymptomatic human immunodeficiency virus [HIV] infection status; G47.00 Insomnia, unspecified; M17.0 Bilateral primary osteoarthritis of knee; Z87.828 Personal history of other (healed) physical injury and trauma; Z98.890 Other specified postprocedural states; Z86.19 Personal history of other infectious and parasitic diseases; Z91.5 Personal history of self-harm; Z56.0 Unemployment, unspecified; Z59.0 Homelessness; Z88.0 Allergy status to penicillin; Z91.011 Allergy to milk products
CPT/HCPCS: 36415; 80053; 81003; 85027; 86593; 86780; 87389; 93005; 93010; C9803; U0003

== ENCOUNTER 2022-09-24 14:21 | Inpatient (IN) | payer OTHER ==
[2022-09-24 15:06] VITALS: BMI 20.6
[2022-09-24] MEDS ORDERED: NICOTINE 10 MG CARTRIDGE (INHALER) IH PRN (15:28)
[2022-09-24] MEDS ORDERED: IBUPROFEN 600 MG TABLET (FP) PO PRN (15:28)
[2022-09-24] MEDS ORDERED: IBUPROFEN 400 MG TABLET (FP) PO PRN (15:28)
[2022-09-24] MEDS ORDERED: chlordiazePOXIDE HCL 25 MG CAPSULE PO PRN (15:28)
[2022-09-24] MEDS ORDERED: hydrOXYzine PAMOATE 25 MG CAPSULE (FP) PO PRN (15:28)
[2022-09-24] MEDS ORDERED: DICYCLOMINE HCL 10 MG CAPSULE PO PRN (15:28)
[2022-09-24] MEDS ORDERED: METHOCARBAMOL 500 MG TABLET PO PRN (15:28)
[2022-09-24] MEDS ORDERED: NICOTINE POLACRILEX 4 MG GUM BUC PRN (15:28)
[2022-09-24] MEDS ORDERED: ONDANSETRON *ODT* 4 MG TABLET SL PRN (15:28)
[2022-09-24] MEDS ORDERED: LOPERAMIDE HCL 2 MG CAPSULE PO PRN (15:28)
[2022-09-24] MEDS ORDERED: MAG HYDROX/AL HYDROX/SIMETH 30 ML UNIT-DOSE CUP PO PRN (15:28)
[2022-09-24] MEDS ORDERED: POLYETHYLENE GLYCOL (HEALTHYLAX) 3350 17 GM PACKET PO PRN (15:28)
[2022-09-24] MEDS ORDERED: MAGNESIUM HYDROX 2400MG/30ML ORAL SUSPENSION 30 ML CUP PO PRN (15:28)
[2022-09-24] MEDS ORDERED: NALOXONE HCL (KLOXXADO) 8 MG SPRAY NS PRN (15:28)
[2022-09-24] MEDS ORDERED: BISMUTH SUBSALICYLATE 524 MG/30 ML PO PRN (15:28)
[2022-09-24] MEDS ORDERED: ACETAMINOPHEN 325 MG TABLET (FP) PO PRN ×2 (15:28)
[2022-09-24] MEDS ORDERED: guaiFENesin 200 MG/10 ML 10 ML UNIT-DOSE CUPS PO PRN (15:32)
[2022-09-24] MEDS: chlordiazePOXIDE HCL 25 MG CAPSULE PO SCH ×2 (18:06→22:20)
[2022-09-24] MEDS: PRENATAL VITAMINS W/ FOLIC ACID TABLET (FP) PO SCH (18:06)
[2022-09-24] MEDS: THIAMINE HCL 100 MG TABLET (FP) PO SCH (21:51)
[2022-09-24] MEDS: MELATONIN 5 MG TABLETS PO SCH (21:51)
[2022-09-24] MEDS: BENZOCAINE/MENTHOL (CHLORASEPTIC ) LOZENGE MM PRN (21:53)
[2022-09-25] MEDS: chlordiazePOXIDE HCL 25 MG CAPSULE PO SCH ×4 (06:01→22:05)
[2022-09-25] MEDS: DARUNAVIR/COB/EMTRI/TENOF (SYMTUZA) TABLET (NF) PO SCH (07:06)
[2022-09-25] MEDS: PRENATAL VITAMINS W/ FOLIC ACID TABLET (FP) PO SCH (10:22)
[2022-09-25 12:46] LABS: HEMATOCRIT 37.2 % (35.4-49); HEMOGLOBIN 12.3 GM/dL (11.7-16.9); MCH 30.9 pg (25.7-33.7); MCHC 33.2 g/dl (32.0-35.9); MEAN CELL VOLUME 93.3 fl (80-96); MEAN PLT VOLUME 11.4 fl (7.5-11.1); PLATELET COUNT 67 10^3/uL (134-434); RBC 3.99 M/mm3 (4.00-5.60); RDW 14.8 % (11.9-15.9); WHITE BLOOD COUNT 3.2 K/mm3 (4.0-10.0)
[2022-09-25 13:13] LABS: CALCIUM 8.4 mg/dL (8.5-10.1)
[2022-09-25 13:14] LABS: ALBUMIN 3.1 g/dl (3.4-5.0); BLOOD UREA NITROGEN 11.7 mg/dL (7-18)
[2022-09-25 13:18] LABS: BILIRUBIN,TOTAL 0.8 mg/dL (0.2-1)
[2022-09-25 13:19] LABS: CREATININE 1.1 mg/dL (0.55-1.3)
[2022-09-25 13:21] LABS: TOT PROT 5.4 g/dl (6.4-8.2)
[2022-09-25] MEDS: BENZOCAINE/MENTHOL (CHLORASEPTIC ) LOZENGE MM PRN ×2 (17:48→22:06)
[2022-09-25] MEDS: THIAMINE HCL 100 MG TABLET (FP) PO SCH (21:46)
[2022-09-25] MEDS: MELATONIN 5 MG TABLETS PO SCH (22:05)
[2022-09-26] MEDS: chlordiazePOXIDE HCL 25 MG CAPSULE PO SCH ×4 (06:15→22:00)
[2022-09-26] MEDS: DARUNAVIR/COB/EMTRI/TENOF (SYMTUZA) TABLET (NF) PO SCH (08:06)
[2022-09-26] MEDS: PRENATAL VITAMINS W/ FOLIC ACID TABLET (FP) PO SCH (10:24)
[2022-09-26] MEDS: BENZOCAINE/MENTHOL (CHLORASEPTIC ) LOZENGE MM PRN (10:25)
[2022-09-26] MEDS: THIAMINE HCL 100 MG TABLET (FP) PO SCH (22:00)
[2022-09-26] MEDS: MELATONIN 5 MG TABLETS PO SCH (22:00)
[2022-09-27] MEDS ORDERED: chlordiazePOXIDE HCL 10 MG CAPSULE PO PRN
[2022-09-27] MEDS: chlordiazePOXIDE HCL 10 MG CAPSULE PO SCH ×2 (06:17→10:34)
[2022-09-27] MEDS: DARUNAVIR/COB/EMTRI/TENOF (SYMTUZA) TABLET (NF) PO SCH (07:51)
[2022-09-27 10:31] VITALS: RESP 16
[2022-09-27] MEDS: PRENATAL VITAMINS W/ FOLIC ACID TABLET (FP) PO SCH (10:34)
[2022-09-27] MEDS: BENZOCAINE/MENTHOL (CHLORASEPTIC ) LOZENGE MM PRN (10:37)
[2022-09-27 12:54] VITALS: BP 112/68; PULSE 84; TEMP 97.7
[2022-09-28] MEDS ORDERED: chlordiazePOXIDE HCL 10 MG CAPSULE PO SCH (05:00)
[2022-09-29] MEDS ORDERED: chlordiazePOXIDE HCL 10 MG CAPSULE PO ONE (05:00)
== END 2022-09-27 14:58 | disposition left against medical advice (07) | DRG 770 ==
LOC: YASAS 14:21 → Y3N 16:27
PROVIDERS: ADMIT Allergy & Immunology; ATTEND Surgery
PROC: HZ2ZZZZ Detoxification Services for Substance Abuse Treatment (ICD-10-PCS; principal; 2022-09-24)
DX: F10.230 Alcohol dependence with withdrawal, uncomplicated (principal); F14.20 Cocaine dependence, uncomplicated; F10.220 Alcohol dependence with intoxication, uncomplicated; F17.210 Nicotine dependence, cigarettes, uncomplicated; F31.81 Bipolar II disorder; F19.282 Other psychoactive substance dependence with psychoactive substance-induced sleep disorder; F19.24 Other psychoactive substance dependence with psychoactive substance-induced mood disorder; Z21 Asymptomatic human immunodeficiency virus [HIV] infection status; D69.6 Thrombocytopenia, unspecified; E46 Unspecified protein-calorie malnutrition; E87.8 Other disorders of electrolyte and fluid balance, not elsewhere classified; Z86.19 Personal history of other infectious and parasitic diseases; Z59.02 Unsheltered homelessness; Z88.0 Allergy status to penicillin; Z91.011 Allergy to milk products
CPT/HCPCS: 36415; 80053; 82140; 85027; 86593; 86780; 87811; 93005; 93010; C9803-CS; U0003; U0005

== ENCOUNTER 2023-03-01 08:39 | Inpatient (IN) | payer OTHER ==
[2023-03-01 09:31] VITALS: BMI 19.2
[2023-03-01] MEDS ORDERED: ACETAMINOPHEN 325 MG TABLET (FP) PO PRN (09:45)
[2023-03-01] MEDS ORDERED: ONDANSETRON *ODT* 4 MG TABLET SL PRN (09:45)
[2023-03-01] MEDS ORDERED: NALOXONE HCL (KLOXXADO) 8 MG SPRAY NS PRN (09:45)
[2023-03-01] MEDS ORDERED: NALOXONE HCL 0.4 MG/ML VIAL IM PRN (09:45)
[2023-03-01] MEDS ORDERED: BISMUTH SUBSALICYLATE 524 MG/30 ML PO PRN (09:45)
[2023-03-01] MEDS ORDERED: NICOTINE 10 MG CARTRIDGE (INHALER) IH PRN (09:45)
[2023-03-01] MEDS ORDERED: MAGNESIUM HYDROX 2400MG/30ML ORAL SUSPENSION 30 ML CUP PO PRN (09:45)
[2023-03-01] MEDS ORDERED: IBUPROFEN 600 MG TABLET (FP) PO PRN (09:45)
[2023-03-01] MEDS ORDERED: BENZONATATE 200 MG CAPSULE PO PRN (09:45)
[2023-03-01] MEDS ORDERED: LOPERAMIDE HCL 2 MG CAPSULE PO PRN (09:45)
[2023-03-01] MEDS ORDERED: MAG HYDROX/AL HYDROX/SIMETH 30 ML UNIT-DOSE CUP PO PRN (09:45)
[2023-03-01] MEDS ORDERED: DICYCLOMINE HCL 10 MG CAPSULE PO PRN (09:45)
[2023-03-01] MEDS ORDERED: guaiFENesin 600 MG TABLET.ER (FP) PO PRN (09:45)
[2023-03-01] MEDS ORDERED: BENZOCAINE/MENTHOL (CHLORASEPTIC ) LOZENGE MM PRN (09:45)
[2023-03-01] MEDS ORDERED: POLYETHYLENE GLYCOL (HEALTHYLAX) 3350 17 GM PACKET PO PRN (09:45)
[2023-03-01] MEDS ORDERED: IBUPROFEN 400 MG TABLET (FP) PO PRN (09:45)
[2023-03-01] MEDS ORDERED: NICOTINE POLACRILEX 2 MG GUM BUC PRN (09:52)
[2023-03-01] MEDS ORDERED: AMMONIUM LACTATE 12% LOTION 225 GM BOTTLE TP PRN (09:52)
[2023-03-01] MEDS ORDERED: COLLOIDAL OATMEAL 1 BAR EACH TP PRN (09:52)
[2023-03-01] MEDS: PRENATAL VITAMINS W/ FOLIC ACID TABLET (FP) PO SCH ×2 (10:46→11:10)
[2023-03-01] MEDS: DARUNAVIR/COB/EMTRI/TENOF (SYMTUZA) TABLET (NF) PO SCH (11:54)
[2023-03-01 12:24] LABS: HEMATOCRIT 40.6 % (35.4-49); HEMOGLOBIN 13.5 GM/dL (11.7-16.9); MCH 29.6 pg (25.7-33.7); MCHC 33.2 g/dl (32.0-35.9); MEAN CELL VOLUME 89.2 fl (80-96); MEAN PLT VOLUME 10.9 fl (7.5-11.1); PLATELET COUNT 109 10^3/uL (134-434); RBC 4.55 M/mm3 (4.00-5.60); RDW 15.5 % (11.9-15.9); WHITE BLOOD COUNT 6.1 K/mm3 (4.0-10.0)
[2023-03-01 12:28] LABS: POTASSIUM 4.2 mmol/L (3.5-5.1)
[2023-03-01 12:31] LABS: CALCIUM 9.6 mg/dL (8.5-10.1)
[2023-03-01 12:32] LABS: ALBUMIN 3.6 g/dl (3.4-5.0); BLOOD UREA NITROGEN 7.9 mg/dL (7-18)
[2023-03-01 12:35] LABS: CREATININE 1.2 mg/dL (0.55-1.3)
[2023-03-01 12:37] LABS: BILIRUBIN,TOTAL 0.6 mg/dL (0.2-1); TOT PROT 6.9 g/dl (6.4-8.2)
[2023-03-01] MEDS: MELATONIN 5 MG TABLETS PO SCH (21:16)
[2023-03-01] MEDS: hydrOXYzine PAMOATE 25 MG CAPSULE (FP) PO PRN (21:16)
[2023-03-01] MEDS: METHOCARBAMOL 500 MG TABLET PO PRN (21:16)
[2023-03-01] MEDS: THIAMINE HCL 100 MG TABLET (FP) PO SCH (21:16)
[2023-03-02] MEDS: PRENATAL VITAMINS W/ FOLIC ACID TABLET (FP) PO SCH (10:17)
[2023-03-02] MEDS: DARUNAVIR/COB/EMTRI/TENOF (SYMTUZA) TABLET (NF) PO SCH (10:17)
[2023-03-02] MEDS: hydrOXYzine PAMOATE 25 MG CAPSULE (FP) PO PRN (21:34)
[2023-03-02] MEDS: MELATONIN 5 MG TABLETS PO SCH (21:34)
[2023-03-02] MEDS: METHOCARBAMOL 500 MG TABLET PO PRN (21:34)
[2023-03-02] MEDS: THIAMINE HCL 100 MG TABLET (FP) PO SCH (21:35)
[2023-03-02] MEDS ORDERED: QUEtiapine FUMARATE 100 MG TABLET (FP) PO ONE (22:00)
[2023-03-03] MEDS: DARUNAVIR/COB/EMTRI/TENOF (SYMTUZA) TABLET (NF) PO SCH (07:04)
[2023-03-03 09:39] VITALS: BP 97/66; PULSE 76; RESP 16; TEMP 97.7
[2023-03-03] MEDS: PRENATAL VITAMINS W/ FOLIC ACID TABLET (FP) PO SCH (10:17)
== END 2023-03-03 11:31 | disposition other institution (70) | DRG 774 ==
LOC: YASAS 08:39 → UNDOADMIN 10:21 → Y3N 10:21
PROVIDERS: ADMIT Allergy & Immunology; ATTEND Surgery
PROC: HZ2ZZZZ Detoxification Services for Substance Abuse Treatment (ICD-10-PCS; principal; 2023-03-01)
DX: F10.20 Alcohol dependence, uncomplicated (principal); F14.20 Cocaine dependence, uncomplicated; F17.210 Nicotine dependence, cigarettes, uncomplicated; F31.9 Bipolar disorder, unspecified; F19.24 Other psychoactive substance dependence with psychoactive substance-induced mood disorder; F41.8 Other specified anxiety disorders; Z21 Asymptomatic human immunodeficiency virus [HIV] infection status; G47.00 Insomnia, unspecified; M17.0 Bilateral primary osteoarthritis of knee; Z88.0 Allergy status to penicillin; Z91.011 Allergy to milk products
CPT/HCPCS: 36415; 80053; 85027; 86593; 86780; 87635

== ENCOUNTER 2023-03-03 11:37 | Inpatient (IN) | payer OTHER ==
[2023-03-03] MEDS ORDERED: NICOTINE 14 MG/24 HOURS TOPICAL PATCH TD PRN (12:47)
[2023-03-03] MEDS ORDERED: NALOXONE HCL (KLOXXADO) 8 MG SPRAY NS PRN (12:47)
[2023-03-03] MEDS ORDERED: BENZOCAINE/MENTHOL (CHLORASEPTIC ) LOZENGE MM PRN (12:47)
[2023-03-03] MEDS ORDERED: POLYETHYLENE GLYCOL (HEALTHYLAX) 3350 17 GM PACKET PO PRN (12:47)
[2023-03-03] MEDS ORDERED: AMMONIUM LACTATE 12% LOTION 225 GM BOTTLE TP PRN (12:47)
[2023-03-03] MEDS ORDERED: IBUPROFEN 400 MG TABLET (FP) PO PRN (12:47)
[2023-03-03] MEDS ORDERED: COLLOIDAL OATMEAL 1 BAR EACH TP PRN (12:47)
[2023-03-03] MEDS ORDERED: NICOTINE POLACRILEX 4 MG GUM BUC PRN (12:47)
[2023-03-03] MEDS ORDERED: BENZONATATE 200 MG CAPSULE PO PRN (12:47)
[2023-03-03] MEDS ORDERED: hydrOXYzine PAMOATE 25 MG CAPSULE (FP) PO PRN (12:47)
[2023-03-03] MEDS ORDERED: guaiFENesin 600 MG TABLET.ER (FP) PO PRN (12:47)
[2023-03-03] MEDS ORDERED: NICOTINE 10 MG CARTRIDGE (INHALER) IH PRN (12:47)
[2023-03-03] MEDS ORDERED: MAG HYDROX/AL HYDROX/SIMETH 30 ML UNIT-DOSE CUP PO PRN (12:47)
[2023-03-03] MEDS ORDERED: ACETAMINOPHEN 325 MG TABLET (FP) PO PRN (12:47)
[2023-03-03] MEDS ORDERED: NALOXONE HCL 0.4 MG/ML VIAL IVPUSH PRN (12:47)
[2023-03-03] MEDS ORDERED: IBUPROFEN 600 MG TABLET (FP) PO PRN (12:47)
[2023-03-03] MEDS ORDERED: LOPERAMIDE HCL 2 MG CAPSULE PO PRN (12:47)
[2023-03-03] MEDS ORDERED: BACLOFEN 10 MG TABLET (FP) PO PRN (12:47)
[2023-03-03] MEDS ORDERED: MAGNESIUM HYDROX 2400MG/30ML ORAL SUSPENSION 30 ML CUP PO PRN (12:47)
[2023-03-03] MEDS: MELATONIN 5 MG TABLETS PO SCH (21:22)
[2023-03-03] MEDS: THIAMINE HCL 100 MG TABLET (FP) PO SCH (21:22)
[2023-03-03] MEDS: QUEtiapine FUMARATE 50 MG TABLET PO SCH (21:23)
[2023-03-03] MEDS ORDERED: QUEtiapine FUMARATE 200 MG TABLET PO SCH (22:00)
[2023-03-04] MEDS: PRENATAL VITAMINS W/ FOLIC ACID TABLET (FP) PO SCH (09:50)
[2023-03-04] MEDS: DARUNAVIR/COB/EMTRI/TENOF (SYMTUZA) TABLET (NF) PO SCH (09:50)
[2023-03-04] MEDS: THIAMINE HCL 100 MG TABLET (FP) PO SCH (21:07)
[2023-03-04] MEDS: QUEtiapine FUMARATE 50 MG TABLET PO SCH (21:07)
[2023-03-04] MEDS: MELATONIN 5 MG TABLETS PO SCH (21:07)
[2023-03-05] MEDS: DARUNAVIR/COB/EMTRI/TENOF (SYMTUZA) TABLET (NF) PO SCH (07:06)
[2023-03-05] MEDS: PRENATAL VITAMINS W/ FOLIC ACID TABLET (FP) PO SCH (10:39)
[2023-03-05] MEDS: MELATONIN 5 MG TABLETS PO SCH (21:14)
[2023-03-05] MEDS: THIAMINE HCL 100 MG TABLET (FP) PO SCH (21:14)
[2023-03-05] MEDS: QUEtiapine FUMARATE 50 MG TABLET PO SCH (21:14)
[2023-03-06] MEDS: DARUNAVIR/COB/EMTRI/TENOF (SYMTUZA) TABLET (NF) PO SCH (07:05)
[2023-03-06] MEDS: PRENATAL VITAMINS W/ FOLIC ACID TABLET (FP) PO SCH ×2 (12:11→12:22)
[2023-03-06] MEDS: MELATONIN 5 MG TABLETS PO SCH (21:31)
[2023-03-06] MEDS: QUEtiapine FUMARATE 50 MG TABLET PO SCH (21:31)
[2023-03-06] MEDS: THIAMINE HCL 100 MG TABLET (FP) PO SCH (21:31)
[2023-03-07] MEDS: DARUNAVIR/COB/EMTRI/TENOF (SYMTUZA) TABLET (NF) PO SCH (07:04)
[2023-03-07] MEDS: PRENATAL VITAMINS W/ FOLIC ACID TABLET (FP) PO SCH (10:15)
[2023-03-07 10:47] VITALS: RESP 18
[2023-03-07] MEDS: THIAMINE HCL 100 MG TABLET (FP) PO SCH (21:08)
[2023-03-07] MEDS: QUEtiapine FUMARATE 50 MG TABLET PO SCH (21:09)
[2023-03-07] MEDS: MELATONIN 5 MG TABLETS PO SCH (21:09)
[2023-03-08 07:09] VITALS: TEMP 98
[2023-03-08] MEDS: DARUNAVIR/COB/EMTRI/TENOF (SYMTUZA) TABLET (NF) PO SCH (07:18)
[2023-03-08] MEDS: PRENATAL VITAMINS W/ FOLIC ACID TABLET (FP) PO SCH (10:28)
[2023-03-08 10:29] VITALS: BP 96/60; PULSE 95
== END 2023-03-08 17:55 | disposition left against medical advice (07) | DRG 770 ==
LOC: YASAS 11:37 → Y3W 11:40
PROVIDERS: ADMIT Allergy & Immunology; ATTEND Psychiatry & Neurology Pain Medicine
PROC: HZ42ZZZ Group Counseling for Substance Abuse Treatment, Cognitive-Behavioral (ICD-10-PCS; principal; 2023-03-03)
DX: F10.20 Alcohol dependence, uncomplicated (principal); F14.20 Cocaine dependence, uncomplicated; F17.210 Nicotine dependence, cigarettes, uncomplicated; F41.8 Other specified anxiety disorders; F32.A Depression, unspecified; Z21 Asymptomatic human immunodeficiency virus [HIV] infection status; G47.00 Insomnia, unspecified; Z88.0 Allergy status to penicillin; Z91.011 Allergy to milk products
CPT/HCPCS: 36415; 86803; 93005; 93010